=== PATIENT | male | born 1965 | race Caucasian/White ===

== ENCOUNTER 2019-07-14 13:48 | Outpatient (CLI) | payer OTHER, SELFPAY ==
--- NOTE | ~2019-07-14 | XR_ITS ---
XR abdomen/kub 1V DATE: 07/14/2019 14:17 INDICATION: Kidney calculus TECHNIQUE: AP projection, 2 views COMPARISON: 02/04/2018 KUB FINDINGS: Several calcified stones overlying the lower pole left kidney, not significantly changed. There may be a very subtle small mid left renal developing calcification. Noncontrast CT abdomen pelv is examination would be more sensitive for detection of urinary tract calculi. No evidence of bowel obstruction. No visceromegaly is evident. Included skeletal structures are unremarkable. IMPRESSION: Left nephrolithiasis Reviewed, dictated and finalized at Location [facility]. Reviewed, dictated and finalized at location B. [place] SALES ADVISOR IMPRESSION: Left nephrolithiasis
== END 2019-07-14 13:49 | disposition home or self-care (01) ==
LOC: ANHIMG 13:56
PROVIDERS: PCP Family Medicine; Visit Provider Urology
DX: N20.0 Calculus of kidney (principal)
CPT/HCPCS: 74018

== ENCOUNTER 2024-12-27 07:43 | Outpatient (CLI) | payer MEDICARE, SELFPAY ==
--- NOTE | ~2024-12-27 | MR_ITS ---
EXAMINATION: MR pelvis wo/w con DATE: 12/27/2024 10:00 INDICATION: Elevated PSA and enlarged prostate TECHNIQUE: Magnetic resonance imaging (MRI) of the pelvis was performed without and with 16 mL Multih ance intravenous contrast. Fullfield sequences of the pelvis included axial and coronal T2-weighted F S FSE, axial T1-weighted FS FSE, axial axial diffusion-weighted SE. Small field of view sequences i ncluded axial, sagittal and coronal T2-weighted FSE centered on the prostate and seminal vesicles. P ostcontrast sequences included sagittal and coronal T1-weighted FS FSE and time course axial T1-weigh aidee LAVA with full-field of view of the pelvis. COMPARISON: None. FINDINGS: Prostatomegaly measuring 5.0 x 4.3 x 4.9 cm with intact smooth peripheral capsule. Bilateral seminal vesicles are normal. Visualized portions of the bowels are unremarkable with retained thin fat plane between the rectum and prostate. No pathologically enlarged pelvic or inguinal lymphadenopathy. Mild bilateral sacroiliac osteoarthritis. Normal bone marrow signal throughout with no pathologic marrow r eplacing process.. IMPRESSION: 1. Prostatomegaly. 5.0 x 4.3 x 4.9 cm. No evidence of extraprostatic malignancy. Reviewed, dictated and finalized at location A. IMPRESSION: 1. Prostatomegaly. 5.0 x 4.3 x 4.9 cm. No evidence of extraprostatic malignancy .
--- OUTSIDE RECORDS SUMMARY | 2024-12-27 07:46 | XMS_ITS | Clinical Summary ---
Author Organization [facility] Address [address] [place] [address] Care Team Providers Care Aircraft Engine Mechanic Overhaul Name Role Phone Devan Skaggs MD Primary Care Provider Allergies No known active allergies Medications GABAPENTIN 300 MG/6ML solutionIndicati ons:p[ain 300 mg by Feeding Tube route 3 (three) times daily. Indications: p[ain 2 Active Amoxicillin-Pot Clavulanate (AUGMENTIN OR)Indications:a ntibiotic 880 mg by Feeding Tube route 3 (three) times daily. Indications: antibiotic 2 Active FLUoxetine HCl (PROZAC OR)Indications:d epression 20 mg by Feeding Tube route daily. Indications: depression 2 Active acetaminophen (TYLENOL) 500 MG tabletIndication s:pain 1,000 mg by Per J Tube route every 6 (six) hours as needed for Pain. take through feeding tube Indications: pain 2 Active ibuprofen (MOTRIN) 600 MG tabletIndication s:pain Take 600 mg by mouth every 6 (six) hours as needed for Pain. take through feeding tube Indications: pain 2 Active oxyCODONE (ROXICODONE) 5 MG/5ML solutionIndicati ons:Acute Pain < 7 Day Supply Take 5 mg by mouth every 4 (four) hours as needed for Pain. through feeding tube Indications: Acute Pain < 7 Day Supply 2 Active pantoprazole EC (PROTONIX) 20 MG tabletIndication s:GERD Take 40 mg by mouth daily. through feeding tube Indications: GERD 2 Active Chlorhexidine Gluconate SolutionIndicati ons:mouth rinse Take 15 mLs by mouth 3 (three) times daily. Indications: mouth rinse 2 Active Cholecalciferol LiquidIndication s:supplement 1,000 Units by Feeding Tube route daily. Indications: supplement 2 Active losartan (COZAAR) 50 MG tabletIndication s:high blood pressure Take 25 mg by mouth daily. 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 Gender Identity Not on file Sexual Orientation Not on file Last Filed Vital Signs Vital Sign Reading Time Taken Comments Blood Pressure 118/64 01/28/2022 11:22 AM CDT Pulse 64 01/28/2022 11:20 AM CDT Temperature 36.3 C (97.4 F) 01/28/2022 11:20 AM CDT Respiratory Rate 18 01/28/2022 11:22 AM CDT Oxygen Saturation 98% 01/28/2022 11:20 AM CDT Inhaled Oxygen Concentration - - Weight 86.2 kg (190 lb) 02/27/2017 4:11 PM CDT Height 167.6 cm (5' 6) 02/27/2017 4:11 PM CDT Body Mass Index 30.67 02/27/2017 4:11 PM CDT Plan of Treatment Health Maintenance Due Date Last Done Comments Colorectal Cancer Screening Colonoscopy (10 Years) 1963 Annual Physical 1966 Hepatitis C 1981 DTaP, Tdap and Td Vaccines ( 1 - Tdap) 1982 Pneumococcal Vaccine: 50+ Years (1 of 1 - PCV) 2013 Zoster Vaccines (1 of 2) 2013 COVID-19 Vaccine (3 - 2023-2 5 season) 2024 11/03/2020, 10/06/2020 RSV Immunization or 60+ Years (1 - 1-dose 75+ series) 2038 Meningococcal B Vaccine Aged Out No l onger eligible based on patient's age to complete this topic Meningococcal Vaccine Aged Out No shawna jorge eligible based on patient's age to complete this topic RSV Immunizations Under 20 Months Aged Out No longer eligible b ased on patient's age to complete this topic Insurance [employer] Advance Directives * Full Code (Latest Code Status on File) Date Activated Date Inactivated Comments 01/28/2022 6:04 PM Care Teams Aircraft Engine Mechanic Overhaul Relationship Specialty Start Date End Date Devan Skaggs MD [address] [place] [phone] PCP - General FAMILY PRACTICE 09/12/19
--- OUTSIDE RECORDS SUMMARY | 2024-12-27 07:46 | XMS_ITS ---
Author Organization [facility] Address [address] [place] [address] Care Team Providers Care Funeral Greeter Name Role Phone Jossue Hassan MD Unavailable [phone] Gilmer Watkins MD Unavailable [phone] Ceferino Montaño DMD Unavailable [phone] Dereck Hale MD Unavailable [phone] Hernan Morley MD Primary Care Provider [phone] Active Problems Problem Noted Date Diagnosed Date Epiphora due to insufficient drainage of right s yarely 07/23/2023 Assessment & Plan (07/23/2023 10:46 AM AFTER SCHOOL PROGRAM DIRECTOR): We have discussed treatment options including trial of topical treatment, surgical intervention, and observation. We have elected to trial a course of prednisolone 1% BID and Flonase daily. Follow-up in 1 month for repeat evaluation. We will await repeat imaging to assess nasal cavity anatomy prior to proceeding with surgical intervention. Epiphora due to insufficient drainage, left 09/2023 Assessment & Plan (08/26/2023 8:45 PM CDT): Faheem Weston notes improvement following prednisolone topical treatment. He will contact us if the epiphora recurs but has been instructed to discontinue the drops to avoid elevated intraocular pressure (IOP) but he may continue the Flonase in the left nostril. He will contact us if he feels the tearing returns. Assessment & Plan (07/23/2023 10:46 AM AFTER SCHOOL PROGRAM DIRECTOR): Faheem Weston is doing well after Free Flap Leg - Left, MAXILLECTOMY with anterior skull base resection - Right, Ethmoidectomy - Right, Orbital Exenteration - Right, Exploration Wound Head/neck - Right, Craniotomy Excision Tumor, and Orbital Exenteration on 01/19/2022. He demonstrates excellent healing of flap. Sensorineural hearing loss, bilateral 06/08/2022 Facial abscess 01/19/2022 Assessment & Plan (01/19/2022 12:12 AM CDT): long course of antibiotics to treat R cheek abscess. Most recently saw ID in clinic on 01/03 at which point he was transitioned from PO clindamycin and IV ceftriaxone to PO Augmentin for an 8 week course. Head and neck cancer 01/19/2022 Colitis 01/18/2022 Assessment & Plan (01/19/2022 12:13 AM CDT): CTAP w/contrast showed extensive colitis, sparing the rectum, sigmoid and rectum with loss of haustrations in the descending colon concerning for infectious or ischemic colitis. CT also noted only moderate atherosclerotic narrowing at the ostium of the middle colic branch of SMA but otherwise patent aorta and branches without dilation and narrowing. Labs notable for WBC 14.4, Hb 14.9, C. Diff negative. Stool culture pending. COVID19 negative. - Gi on board, c diff neg, already on MNZ and cipro, swicthed to IV, IVF, fup stool studies, ID consulted, GI concerned for secretory diarhea, will monitor Hb Eye infection, right 12/29/2021 Assessment & Plan (12/29/2021 9:21 AM CDT): - Continues on IV Ceftriaxone and PO Clindamycin for treatment of right dacryocystitis c/b abscess s/p drainage of abscess (Cx + MSSA and P acnes). Per opthalmology, there was no evidence of bony involvement. - As of today he has completed 2.5 weeks of IV Ceftriaxone and PO Clindamycin. Due to location and poor response to previous PO antibiotics, would require course of IV antibiotics. Plan to complete at least 2 weeks, could then transition to PO therapy to complete 4-6 weeks. - Discussed with attending, will plan to stop PO Clindamycin and IV Ceftriaxone as patient did not ideally want to continue with IV. Will start on Augmentin 875- 125 mg BID to complete a total of 8 weeks. Which will provide coverage for MSSA/P acnes, and presumed oral kenyetta. - Per the she stated that he is scheduled for surgery in 3-4 weeks and felt that we could just continue until surgery and if it was felt needed they could prescribe antibiotics after his procedure vs having him complete 8 weeks. I discussed that I would continue the antibiotics for at least a week after surgery. At this time script sent x 4 weeks to plan and complete at least 6 weeks with a stop date of 01/18/22. At this time there is no date for upcoming surgery. - Labs today: CBC/CMP - Will follow with ID as needed - Discussed that they please reach out with any concerns or if surgery is scheduled out further that I can send a refill for Augmentin to allow for completion of 8 weeks. 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 Meza on 12/08/21 due to periorbital swelling.. He demonstrates improvement in dacryocystitis. Dacrocystitis 11/27/2021 Assessment & Plan (11/27/2021 4:51 PM CDT): Right dacryocystitis with lacrimal sac enlargement and mucous discharge likely secondary to nasolacrimal duct obstruction. 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 Mild eyelid edema and erythema but no evidence of preseptal cellulitis. Plan for course of Augmentin for approximately 2 weeks prior to DCR surgery. Risks, benefits and alternatives were discussed. Risks included but were not limited to pain, infection, bleeding, scarring, eyelid asymmetry, need for additional procedures, and anesthetic morbidity. Following this discussion, the patient wishes to proceed with Right dacryocystorhinostomy (DCR) with stent placement. We will schedule this in the near future. He has been instructed to call us if the swelling and redness worsens prior to surgery. Visual disturbances 11/16/2021 Assessment & Plan (01/19/2022 12:11 AM CDT): Refer to SCC of alveolar ridge Assessment & Plan (11/16/2021 11:36 AM CDT): Urgent visit today for stationary shadow/dark spot in vision right eye (OD) when looking to his right X 1 day -retina flat and attached; full to confrontations +PVD but not c/w symptoms -follow for now; question if symptom related to swelling at nasal canthus -RTC as scheduled with Dr. Varela next week; RTC taye if symptoms worsen; can RTC with me after canaliculitis resolved Acute canaliculitis of right lacrimal passage Assessment & Plan (11/16/2021 11:36 AM CDT): Keep appt as scheduled next week with Dr. 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 Right maxillectomy 2. Right neck dissection level IB-III Assessment & Plan (01/19/2022 11:47 AM CDT): ENT c/s'd, took to the OR on 01-19 for free flap, maxillectomy, craniotomy, ethmoidectomy, orbital exenteration. - will need close ENT care if he comes to the medicine service after surgery instead of being admitted to ENT Assessment & Plan (12/25/2021 10:33 PM CDT): Pathology biopsy findings of right cheek keratinaceous lesion demonstrates recurrence of the squamous cell carcinoma (SCC). He will obtain repeat imaging this week (MRI and PET) to further characterize extent of recurrence and will follow up with Dr. Espitia following imaging to discuss treatment options. We thoroughly discussed findings and all questions were answered though I emphasized importance of upcoming imaging to better determine next steps. Current Treatment and Therapy Plans No current plan information found. Past Treatment and Therapy Plans No past plan information found. Radiation Treatments * Course [id number]_HN_[id number]/13/2022 - 04/28/2022 Treatment Period Energy Fraction Dose Fractions Total Dose Plans Planned P+RT H_N 03/13/2022 - 04/28/2022 200 30 / 6,000 Reference Points Delivered P+RT H_N 6000 cG 03/13/2022 - 04/28/2022 6,002 * Course [id number]_[id number]/06/2021 - 07/20/2021 Treatment Period Energy Fraction Dose Fractions Total Dose Plans Planned RPLN RT HN WO 07/04/2021 - 07/20/2021 200 13 / 2,600 RESCN_RT HN W 06/10/2021 - 07/01/2021 200 16 / 5,800 RT HN 06/06/2021 - 06/09/2021 200 4 / 6,600 Reference Points Delivered [id number] 06/06/2021 - 07/20/2021 6,600 Lifetime Dose Tracking * Chemical Lifetime Dose Automatic Entry Manual Entr y DLP 9,098 mGycm 9,098 mGycm 0 mGycm
--- OUTSIDE RECORDS SUMMARY | 2024-12-27 07:46 | XMS_ITS | Encounter Summary ---
Author Organization [facility] Address [address] [place] [address] Phone Care Team Providers Care Special Class Welder Name Role Phone Jossue Hassan MD Unavailable [phone] Gilmer Watkins MD Unavailable [phone] Ceferino Montaño DMD Unavailable [phone] Caleb Lancaster MD Unavailable Devan Skaggs MD Primary Care Provider [phone] Dereck Hale MD Unavailable [phone] Henran Morley MD Primary Care Provider [phone] Encounter Details Date Type Department Care Team (Late st Contact Info) Description 12/07/2021 Ophth Exam [facility] [address] [place] [phone] Mary Shepherd MD [address] [facility] [id number] [place] [address] Social History Tobacco Use Types Packs/Day Years Used Date Smoking Tobacco: Never Smokeless Tobacco: Never Comments:2 cigars a week AUDIT-C Answer Date Recorded Q1: How often do you have a drink containing alc ohol? 2-3 times a week 12/08/2021 Q2: How many drinks containi ng alcohol do you have on a typical day when you are drinking? 1 or 2 12/08/2021 Q3: How often do you have si x or more drinks on one occasion? 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 2-3 times a week 12/08/2021 1:45 PM David Markham Q2: How many drinks containing alcohol do you have on a typical day when you are drinking? 1 or 2 12/08/2021 1:45 PM May Markham Q3: How often do you have six or more drinks on one occasion? Never 12/08/2021 1:45 PM David Markham documented as of this encounter Plan of Treatment Not on file documented as of this encounter Visit Diagnoses Not on filedocumented in this encounter Eye Exam Visual Acuity Right eye Left eye Near sc 20/20-2 20/20 Tonometry (Tonopen, 2:25 AM) Right eye Left eye Pressure 15 16 Pupils Dark Light Shape React APD Right eye 7 4.5 Round Brisk None Left eye 7 4.5 Round Brisk None Visual Louise (Counting fingers) Right eye Left eye Full Full Extraocular Movement Right eye Left eye Full Full Neuro/Psych Oriented x3: Yes Mood/Affect: Normal Dilation Both eyes: 1.0% Mydriacyl @ 2:26 AM Color Right eye Left eye Ishihara 05/08 12 External Exam Right eye Left eye External Normal Normal Slit Lamp Exam Right eye Left eye Lids/Lashes Normal Normal Conjunctiva/Sclera White and quiet White and rhianna et Cornea Clear Clear Anterior Chamber Deep and quiet Deep and quiet Iris Round and reactive Round and juancarlos ctive Lens 1+ NS 1+ NS Anterior Vitreous Normal Normal Mild redness/swelling of right nasal mucosa compared with left. No obvious redness around obduratorin mouth. Fundus Exam Right eye Left eye Posterior Vitreous Normal Normal Disc Normal, no edema, no pallor Norm al, no edema, no pallor C/D Ratio 0.35 0.35 Macula Flat, attached Flat, attached Vessels Normal Normal Periphery Normal, no RT/RD on 360 PELT SHEARER Norm al Care Teams Special Class Welder Relationship Specialty Start Date End Date Devan Skaggs MD [address] [place] [address] PCP - General 05/09/21 07/08/23 Hernan Morley MD [address] [place] [address] PCP - General Internal Medicine 07/09/23 Jossue Hassan MD Referring Physician Otolaryngology 03/17/21 Gilmer Watkins MD Medical Oncologist/Hematologi st Medical Oncology 03/17/21 Ceferino Montaño DMD [address] [place] [address] Dentist Dental Civil Clerk 04/27/21 Caleb Lancaster MD [address] [place] [address] Radiation Oncologist Radiation Oncology 05/08/21 Dereck Hale MD [address] [facility] [address] [place] [address] Radiation Oncologist Radiation Oncology 02/10/22 documented as of this encounter
--- OUTSIDE RECORDS SUMMARY | 2024-12-27 07:46 | XMS_ITS | Clinical Summary ---
Author Organization [facility] Address Formerly [facility] [place] [address] Care Team Providers Care Hide Sorter Name Role Phone Jossue Hassan MD Unavailable [phone] Gilmer Watkins MD Unavailable [phone] Ceferino Montaño DMD Unavailable [phone] Dereck Hale MD Unavailable [phone] Hernan Morley MD Primary Care Provider + [phone] Allergies No known active allergies Medications losartan (COZAAR) 25 mg tablet 3 Active mirtazapine (REMERON) 15 mg tablet Take 1 tablet (15 mg total) by mouth nightly 30 tablet 2 3 Active pentoxifylline ER (TRENtal) 400 mg CR tablet 4 Active vitamin E 400 unit capsule Take 1 capsule (400 Units total) by mouth Active derezpxz08-[id number] -Lmfolate-algal 27 mg iron-1.13 mg-581.92 mg capsule Take by mouth Active inulin-sorbitoL 2 gram tablet,chewable Take by mouth Active prednisoLONE acetate (PRED FORTE) 1 % ophthalmic suspension Administer 1 drop into the left eye 2 (two) times a day 5 mL 1 4 Active fluticasone propionate (FLONASE) 50 mcg/actuation nasal spray Administer 1 spray into each nostril daily 1 each 1 4 Active Additional Information Patient not taking.Reported on 07/04/2024 LORazepam (ATIVAN) 1 mg tablet 4 Active FLUoxetine (PROzac) 40 mg capsuleIndicati ons:depression TAKE 1 CAPSULE (40 MG TOTAL) BY MOUTH DAILY 30 capsule 4 Active Active Problems Problem Noted Date Diagnosed Date 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 Assessment & Plan (07/23/2023 10:46 AM FOREST FIRE CONTROL OFFICER): Faheem Weston is doing well after Free [...] (12/26/2021): Added automatically from request for surgery [id number] Dacrocystitis, right 12/07/2021 Assessment & Plan (01/19/2022 [...] upcoming imaging to better determine next steps. Surgical History Surgery Date Site/Laterality Comments OTHER SURGICAL HISTORY 05/28/1993 - 05/27/1994 Maxillary fx surgery LITHOTRIPSY 05/28/2014 - 05/27/2015 several COLONOSCOPY ESOPHAGOGASTRODUODENOSCOPY MAXILLECTOMY 03/28/2021 - 04/26/2021 Right and Neck Dissection Medical History Medical History Date Comments Gastritis Cancer of upper gingiva (HCC) Esophagitis Kidney stones Generalized headaches Complaint of feeling depressed Feeling anxious Cancer (HCC) Last radiation 0 06/2021 Hypertension Family History Medical History Relation Name Comments Hemochromatosis Brother Diabetes Father Hypertension Father Kidney disease Father Rheumatic fever Father Skin cancer Father Breast cancer Mother Anesthesia problems Neg Hx Relation Name Status Comments Brother Father Mother Alive Social History Tobacco Use Types Packs/Day Years Used Date Smoking Tobacco: Never Smokeless Tobacco: Never Tobacco Cessation:Counseling Given: No Comments:2 cigars a week AUDIT-C Answer Date Recorded Q1: How often do you have a drink containing alc ohol? 2-3 times a week 03/12/2023 Average Number of Drinks Not on file 023 Q3: How often do you have si x or more drinks on one occasion? Weekly 03/12/2023 [facility] - Occupational Stress Questionnaire Answer Date Recorded Do you feel stress - tense, restless, nervous, or anxious, or unable to sleep at night because your mind is troubled all the time - these days? Only a little 12/20/2021 Sex and Gender Information Value Date Recorded Sex Assigned at Not on file Legal Sex Male 12:35 PM FOREST FIRE CONTROL OFFICER Gender Identity Not on file Sexual Orientation Not on file Obstetrics History Last Filed Vital Signs Vital Sign Reading Time Taken Comments Blood Pressure 134/81 03/10/2024 2:56 PM CDT Pulse 74 03/10/2024 2:53 PM CDT Temperature 36.4 C (97.5 F) 03/10/2024 2:53 PM CDT Respiratory Rate 18 03/10/2024 2:53 PM CDT Oxygen Saturation 99% 01/26/2022 12:01 PM CDT Inhaled Oxygen Concentration - - Weight 74.7 kg (164 lb 9.6 oz) 07/04/2024 1:04 P M FOREST FIRE CONTROL OFFICER Height 164.5 cm (5' 4.76) 07/04/2024 1:04 PM CS T Body Mass Index 27.59 07/04/2024 1:04 PM FOREST FIRE CONTROL OFFICER Plan of Treatment Health Maintenance Due Date Last Done Comments Colon Cancer Screening-Colonoscopy 1963 Depression Screening 1963 Prostate Cancer Screening-PSA 1963 DTaP/Tdap/Td Vaccine (1 - Tdap) 1974 Hepatitis B Screening 1981 Regular Well Visit/Exam 18-64 1981 Zoster Vaccine (1 of 2) 2013 Covid-19 Vaccine (3 - 2023-2 5 season) 2024 11/03/2020, 10/06/2020 Influenza Vaccine (#1) 2025 Hepatitis C Screening Completed 12/20/2021 Pneumococcal vaccine <65 Aged Out No longer eligible based on patient's age to complete this topic Medical Devices Implanted Type Area Referral Agent Device Identifier Shelf Expiration Date Model / Serial / Lot Pluralsights [employer] Clara García Microvascular 3mm Ring Pin Protective Cover Jaw Assembly Latex Free [id number] - [id number] Implanted:Qty: 1 on 01/19/2022 by Jossue Hassan MD at [facility] Right: Neck [employer] Clara [id number] 05/12/2026 [id number] / / [id number] Procedures Procedure Name Priority Date/Time Associated Diagnosis Comments HEPATITIS PANEL, ACUTE Routine 12/20/2021 4:08 PM CDT 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 Current interpretive data was last revised on 19. Testing performed by: [facility], [address] [place] [address]., [address] Hep B core IgM Nonreactive Nonreactive [facility] Comment: Interpretive Data If HepB Core IgM Ab is reported as Equivocal, a new sample should be drawn in two weeks for testing. Current interpretive data was last revised on 19. Testing performed by: [facility], [address] [place] [address]., [address] Hep C Ab Nonreactive Nonreactive [facility] Comment: Interpretive Data Nonreactive: Antibodies to HCV not detected. Does NOT exclude the possibility of recent exposure to HCV. Equivocal: Equivocal for HCV antibodies. Supplemental molecular testing will be automatically performed to determine infection status in accordance with current CDC screening recommendations. Reactive: Positive for HCV antibodies. This may represent current or past HCV infection. Supplemental molecular testing will be automatically performed to determine current infection status in accordance with current CDC screening recommendations. Interpretive data was last revised on 2019. Testing performed by: [facility], [address] [place] [address]., [address] HepBsAg Nonreactive Nonreactive [facility] Comment:Testing performed by : [facility], [address] [place] [address]., [address] Blood 12/20/2021 4:08 PM CDT 12/20/2021 6:33 PM CDT Caleb Lancaster MD LAB MICROBIOLOGY - NERAL ORDERABLES Final Result [facility] [address] [facility]. [place] [address] from Last 3 Months or Most Recently Relevant to Health Maintenance Insurance [facility] MEDICARE [facility] MEDICARE [employer] MEDICARE [facility] Advance Directives For more information, please contact: [phone] * Full Code (Latest Code Status on File) Date Activated Date Inactivated Comments 01/19/2022 10:28 PM 01/26/2022 10:21 PM * Full Code Date Activated Date Inactivated Comments 01/18/2022 6:57 PM 01/19/2022 10:28 PM * Full Code Date Activated Date Inactivated Comments 01/18/2022 6:40 PM 01/18/2022 6:57 PM * Full Code Date Activated Date Inactivated Comments 12/07/2021 11:33 AM 12/13/2021 9:29 PM * Full Code Date Activated Date Inactivated Comments 04/15/2021 3:40 PM 04/19/2021 5:48 PM Care Teams Hide Sorter Relationship Specialty Start Date End Date Hernan Morley MD [address] [place] [address] PCP - General Internal Medicine 07/09/23 Jossue Hassan MD Referring Physician Otolaryngology 03/17/21 Gilmer Watkins MD Medical Oncologist/Hematologi Medical Oncology 03/17/21 Ceferino Montaño DMD [address] [place] [address] Dentist Dental Grain Elevator Man 04/27/21 [place] [address] [place] [address] # LL [address] [place] [address] Radiation Oncologist Radiation Oncology 02/10/22
--- OUTSIDE RECORDS SUMMARY | 2024-12-27 07:46 | XMS_ITS | Referral Summary ---
Author Organization [facility] Address [facility] [place] [address] Care Team Providers Care Corporation Officer Name Role Phone Jossue Hassan MD Unavailable [phone] Gilmer Watkins MD Unavailable [phone] Ceferino Montaño DMD Unavailable [phone] Dereck Hale MD Unavailable [phone] Hernan Morley MD Primary Care Provider + [phone] Allergies No known active allergies Medications losartan (COZAAR) 25 mg tablet 3 Active mirtazapine (REMERON) 15 mg tablet Take 1 tablet (15 mg total) by mouth nightly 30 tablet 2 3 Active pentoxifylline ER (TRENtal) 400 mg CR tablet 4 Active vitamin E 400 unit capsule Take 1 capsule (400 Units total) by mouth Active [id number]-[id number] -Lmfolate-algal 27 mg iron-1.13 mg-581.92 mg capsule [...] 07/23/2023 Assessment & Plan (07/23/2023 10:46 AM QUALITY WORKER): We have discussed treatment options including trial [...] returns. Assessment & Plan (07/23/2023 10:46 AM QUALITY WORKER): Faheem Weston is doing well after Free [...] (12/26/2021): Added automatically from request for surgery [id number] Dacrocystitis, right 12/07/2021 Assessment & Plan (01/19/2022 [...] upcoming imaging to better determine next steps. Social History Tobacco Use Types Packs/Day Years [...] more drinks on one occasion? Weekly 03/12/2023 [facility] - Occupational Stress Questionnaire Answer Date Recorded Do you feel stress - tense, restless, nervous, or anxious, or unable to sleep at night because your mind is troubled all the time - these days? Only a little 12/20/2021 Sex and Gender Information Value Date Recorded Sex Assigned at Not on file Legal Sex Male 12:35 PM QUALITY WORKER Gender Identity Not on file Sexual Orientation [...] lb 9.6 oz) 07/04/2024 1:04 P M QUALITY WORKER Height 164.5 cm (5' 4.76) 07/04/2024 1:04 PM CS T Body Mass Index 27.59 07/04/2024 1:04 PM QUALITY WORKER Plan of Treatment Not on file Medical Devices Implanted Type Area Apprentice Photographer Device Identifier Shelf Expiration Date Model / Serial / Lot [employer] Allian [place] Microvascular 3mm Ring Pin Protective Cover Jaw Assembly Latex Free [id number] - [id number] Implanted:Qty: 1 on 01/19/2022 by Jossue Hassan MD at [facility] Right: Neck [employer] Clara [id number] 05/12/2026 [id number] / / [id number] Procedures Procedure Name Priority Date/Time Associated Diagnosis Comments HEPATITIS PANEL, ACUTE Routine 12/20/2021 4:08 PM CDT 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 Current interpretive data was last revised on 19. Testing performed by: [facility], [address] [place] [address]., [address] Hep B core IgM Nonreactive Nonreactive [facility] Comment: Interpretive Data If HepB Core IgM Ab is reported as Equivocal, a new sample should be drawn in two weeks for testing. Current interpretive data was last revised on 19. Testing performed by: [facility], [address] [place] [address]., [address] Hep C Ab Nonreactive Nonreactive [facility] Comment: Interpretive Data Nonreactive: Antibodies [...] last revised on 2019. Testing performed by: [facility], [address] [place] [address]., [address] HepBsAg Nonreactive Nonreactive [facility] Comment:Testing performed by : [facility], [facility], [place]., [address] Blood 12/20/2021 4:08 PM CDT 12/20/2021 6:33 PM CDT Caleb Lancaster MD LAB MICROBIOLOGY - NERAL ORDERABLES Final Result Performing Organization Address City/State/[facility] Co mi Phone Number [facility] [address] [facility]. [place] [address] from Last 3 Months or Most Recently Relevant to Health Maintenance Insurance [facility] MEDICARE [facility] MEDICARE [facility] MEDICARE [facility] Advance Directives For more information, please contact: [phone] * Full Code (Latest Code Status on [...] 3:40 PM 04/19/2021 5:48 PM Care Teams Corporation Officer Relationship Specialty Start Date End Date Hernan Morley MD [address] [place] [address] PCP - General Internal Medicine 07/09/23 Jossue Hassan MD Referring Physician Otolaryngology 03/17/21 Gilmer Watkins MD Medical Oncologist/Hematologi st Medical Oncology 03/17/21 Ceferino Montaño DMD [address] [place] [address] Dentist Dental Supervisor In Charge 04/27/21 Dereck Hale MD [address] [facility] # LL LL [address] [place] [address] Radiation Oncologist Radiation Oncology 02/10/22
== END 2024-12-27 07:44 | disposition home or self-care (01) ==
PROVIDERS: PCP Internal Medicine; Visit Provider Internal Medicine
DX: N40.0 Benign prostatic hyperplasia without lower urinary tract symptoms (principal); R97.20 Elevated prostate specific antigen [PSA]
CPT/HCPCS: 72197; A9577